=== PATIENT | female | born 2000 | race Caucasian/White ===

== ENCOUNTER 2022-06-12 18:15 | Emergency (ER) | payer SELFPAY ==
[~2022-06-12] VITALS: Ht 165.1 cm; Wt 65.0 kg
[2022-06-12 18:26] VITALS: BP 120/79
== END 2022-06-12 19:07 | disposition left against medical advice (07) ==
LOC: ER 18:15
DX: Z53.21 Procedure and treatment not carried out due to patient leaving prior to being seen by health care provider (principal)
CPT/HCPCS: 93005